=== PATIENT | male | born 1940 | race Caucasian/White ===

== ENCOUNTER 2016-08-28 11:35 | Emergency (ER) | payer MEDICARE, OTHER ==
[~2016-08-28] VITALS: Ht 170.2 cm; Wt 95.3 kg
[2016-08-28] MEDS ORDERED: IV NS 0.9% 1,000 ML ONE (11:43)
[2016-08-28] MEDS ORDERED: IV SET PRIMARY PUMP SET 1 EA INFUS.SET MC ONE (11:43)
[2016-08-28] MEDS ORDERED: ONDANSETRON HCL/PF 4 MG/2 ML VIAL ONE ×2 (11:43→13:56)
[2016-08-28 11:56] LABS: BASOPHILS # (AUTO) 0.3 /CMM (0.0-0.2); BASOPHILS % (AUTO) 2.7 % (0.0-2.0); DIFF TOTAL % 100 %; EOSINOPHILS # (AUTO) 0.6 /CMM (0.0-0.7); HEMATOCRIT 38 % (39-51); HEMOGLOBIN 12.5 g/dL (13.5-17.5); LYMPHOCYTES # (AUTO) 2.2 /CMM (0.8-4.8); LYMPHOCYTES % (AUTO) 22.2 % (20.0-44.0); MEAN CORPUSCULAR HEMOGLOBIN 29 PG (26.0-33.0); MEAN CORPUSCULAR HGB CONC 33 g/dl (31.0-36.0); MEAN CORPUSCULAR VOLUME 87 fL (80-96); MONOCYTES # (AUTO) 0.9 /CMM (0.1-1.30); MONOCYTES % (AUTO) 9.6 % (2.0-12.0); NEUTROPHILS # (AUTO) 5.9 /CMM (1.8-8.9); NEUTROPHILS % (AUTO) 59.5 % (43.0-81.0); PLATELET COUNT (AUTO) 234 /CMM (150-450); RED BLOOD CELL COUNT(AUTO) 4.34 MIL/uL (4.5-6.0); WHITE BLOOD COUNT (AUTO) 9.9 K/uL (4.3-11.0)
[2016-08-28] MEDS ORDERED: IV NS 0.9% 1,000 ML BAG IV ONE (12:00)
[2016-08-28] MEDS ORDERED: ONDANSETRON HCL/PF 4 MG/2 ML VIAL IV ONE ×2 (12:00→14:00)
[2016-08-28 12:07] LABS: CREATININE 1.3 mg/dL (0.6-1.3); POTASSIUM 4.1 mmol/L (3.5-5.1)
[2016-08-28 12:10] LABS: INR 0.99 (0.87-1.13); PROTHROMBIN TIME 10.4 SECS (9.5-12.7)
[2016-08-28 12:11] LABS: CALCIUM, SERUM 8.7 mg/dL (8.5-10.1)
[2016-08-28] MEDS ORDERED: PROMETHAZINE HCL 25 MG/ML AMPUL ONE (15:28)
[2016-08-28] MEDS ORDERED: PROMETHAZINE HCL 25 MG/ML AMPUL IV ONE (15:30)
[2016-08-28 16:53] VITALS: BP 151/79
== END 2016-08-28 16:54 | disposition home or self-care (01) ==
LOC: ER 11:38
DX: S52.501A Unspecified fracture of the lower end of right radius, initial encounter for closed fracture (principal); E86.0 Dehydration; I25.2 Old myocardial infarction; I10 Essential (primary) hypertension; Z95.810 Presence of automatic (implantable) cardiac defibrillator; W01.0XXA Fall on same level from slipping, tripping and stumbling without subsequent striking against object, initial encounter; Y93.9 Activity, unspecified; Y92.9 Unspecified place or not applicable; Y99.9 Unspecified external cause status
CPT/HCPCS: 29105; 36415; 73080; 73130; 80048; 85025; 85730; 96361; 96374; 96375; 96376; 99285; A4606; J2405 ×2; J2550; J7030; Z7610

== ENCOUNTER 2020-05-08 12:14 | Inpatient (IN) | payer MEDICARE, OTHER ==
[~2020-05-08] VITALS: Ht 172.7 cm; Wt 101.2 kg
--- NOTE | 2020-05-08 12:22 | NUR ---
YURIY FROM HOME, C/O WEAKNESS, NAUSEA AND VOMITING. TO ER BED 8, HOOKED TO MONITOR, CHANGED TO HOSP GOWN, WARM BLANKET PROVIDED, PATIENT AAO x 4, BREATHING EVEN AND UNLABORED, AWAITING MD BEATTY.
--- NOTE | 2020-05-08 12:24 | NUR ---
DR MAGDALENO AT BEDSIDE
[2020-05-08] MEDS ORDERED: IV NS 0.9% 500 ML BAG IV ONE (12:30)
--- NOTE | 2020-05-08 12:30 | NUR ---
JOHANA [phone]
[2020-05-08 12:44] LABS: BASOPHILS % (AUTO) 0.8 % (0.0-2.0); EOSINOPHILS % (AUTO) 1.8 % (0.0-6.0); HEMATOCRIT 44 % (39-51); HEMOGLOBIN 14.6 g/dL (13.5-17.5); LYMPHOCYTES # (AUTO) 1.1 /CMM (0.8-4.8); MEAN CORPUSCULAR HGB CONC 34 g/dl (31.0-36.0); MEAN CORPUSCULAR VOLUME 93 fL (80-96); MONOCYTES # (AUTO) 0.4 /CMM (0.1-1.30); MONOCYTES % (AUTO) 11.2 % (2.0-12.0); NEUTROPHILS # (AUTO) 2.2 /CMM (1.8-8.9); NEUTROPHILS % (AUTO) 57.2 % (43.0-81.0); PLATELET COUNT (AUTO) 156 /CMM (150-450); RED BLOOD CELL COUNT(AUTO) 4.68 MIL/uL (4.5-6.0); WHITE BLOOD COUNT (AUTO) 3.9 K/uL (4.3-11.0)
[2020-05-08 12:56] LABS: CALCIUM, SERUM 8.4 mg/dL (8.5-10.1); CARBON DIOXIDE 27 mmol/L (21-32); CHLORIDE 101 mmol/L (98-107); CREATININE 1.2 mg/dL (0.6-1.3); GLUCOSE 142 mg/dL (74-106); SODIUM SERUM 137 mmol/L (136-145); UREA NITROGEN, BLOOD 16 mg/dL (7-18)
[2020-05-08 13:01] LABS: ALANINE AMINOTRANSFERASE 13 U/L (12-78); ALBUMIN 3.2 g/dL (3.4-5.0); ALKALINE PHOSPHATASE 59 U/L (46-116); ASPARTATE AMINOTRANSFERASE 24 U/L (15-37); BILIRUBIN,DIRECT 0.1 mg/dL (0.0-0.2); BILIRUBIN,TOTAL 0.5 mg/dL (0.2-1.0); TOTAL PROTEIN, SERUM 7.4 g/dL (6.4-8.2)
[2020-05-08] MEDS ORDERED: CARV12.52 PO (13:46)
[2020-05-08] MEDS ORDERED: SPIR25TA6 PO (13:46)
[2020-05-08] MEDS ORDERED: PANT40TA49 PO (13:46)
[2020-05-08] MEDS ORDERED: VALS80TA31 PO (13:46)
[2020-05-08] MEDS ORDERED: CALC0.5C8 PO (13:46)
[2020-05-08] MEDS ORDERED: CYAN-6 SQ (13:46)
[2020-05-08] MEDS ORDERED: CLOP75TA15 PO (13:46)
[2020-05-08] MEDS ORDERED: LIDO700A30 TP (13:46)
[2020-05-08] MEDS ORDERED: TAMS-12 PO (13:46)
[2020-05-08] MEDS ORDERED: GABA-532 PO (13:46)
[2020-05-08] MEDS ORDERED: AZIT250T13 PO (13:46)
[2020-05-08] MEDS ORDERED: ROSU10TA29 PO (13:46)
[2020-05-08] MEDS ORDERED: URSO250T11 PO (13:47)
--- NOTE | 2020-05-08 14:36 | NUR ---
JONES VIRUS PCR DONE AND SENT TO LAB.
--- NOTE | 2020-05-08 15:35 | NUR ---
PATIENT IN BED ASLEEP, EASILY AROUSABLE BY VOICE, HOOKED TO DISTRICT TRAFFIC CHIEF, VSS. KEPT SAFE AND COMFORTABLE. WILL CONTINUE TO MONITOR
[2020-05-08] MEDS ORDERED: Z GUARD REMEDY 2 OZ OINT TP PRN (16:30)
[2020-05-08] MEDS ORDERED: ONDANSETRON HCL/PF 4 MG/2 ML VIAL IVP PRN (16:30)
[2020-05-08] MEDS ORDERED: MAG HYDROX/AL HYDROX/SIMETH 30 ML UDC PO PRN (16:30)
[2020-05-08] MEDS ORDERED: ACETAMINOPHEN 325 MG TABLET PO PRN (16:30)
[2020-05-08] MEDS ORDERED: MECLIZINE HCL 25 MG TABLET PO PRN (16:30)
[2020-05-08] MEDS ORDERED: TEMAZEPAM 15 MG CAPSULE PO PRN (16:30)
[2020-05-08] MEDS ORDERED: MORPHINE SULFATE INJ 2 MG/ML DISP.SYRIN IV PRN (16:30)
--- NOTE | 2020-05-08 16:42 | NUR ---
PATIENT REFUSED CTA BRAIN. JOVANY MARKS MADE AWARE
--- NOTE | 2020-05-08 17:11 | NUR ---
BACK FROM CT SCAN
--- NOTE | 2020-05-08 17:25 | NUR ---
REPORT GIVEN TO LEONIE LYONS OF TELE UNIT
[2020-05-08] MEDS ORDERED: GABAPENTIN 300 MG CAPSULE PO SCH (18:00)
--- NOTE | 2020-05-08 18:32 | NUR ---
transferred to tele unit via acls protocol.
--- NOTE | 2020-05-08 19:30 | NUR ---
DIRECTOR OF MARKETING AND PROMOTIONSOBSERVATION ASSISTANT NOTE PATIENT ARRIVED TO UNIT AT 1830 ON DAY SHIFT VIA GURNEY. PATIENT A/OX4. TOLERATING ROOM AIR. RESPIRATIONS ARE EVEN AND UNLABORED. NO S/S SOB NOTED. NO C/O PAIN AT THIS TIME. EXTERNAL TELE MONITOR READS PACING NONSENSING HR 100. PATIENT HAS A DEFIBRILLATOR / LEFT CHEST WALL PACEMAKER. IN NO APPARENT DISTRESS. IV ACCESS IN LEFT HAND #20 PATENT AND SALINE LOCKED. INITAL PHYSICAL ASSESSMENT COMPLETED AT THIS TIME. SKIN ASSESSMENT COMPLETED, PHOTOS TAKEN AND PLACED IN CHART. BELONING LIST COMPLETED, VITAL SIGNS TAKEN. BED IS LOW AND LOCKED, HOB ELEVATED IN SEMI FOWLERS, SIDE RAILS UP X2, JEFFY LIGHT WITHIN REACH. WILL CONTINUE TO MONITOR.
[2020-05-08 20:00] VITALS: BP 132/70
[2020-05-08] MEDS: ATORVASTATIN 10 MG TABLET PO SCH (21:18)
[2020-05-08] MEDS: GABAPENTIN 300 MG CAPSULE PO SCH (21:18)
[2020-05-08] MEDS: CARVEDILOL 12.5 MG TABLET PO SCH (21:20)
--- NOTE | 2020-05-08 23:40 | NUR ---
CHIEF LOCK OPERATOR NOTE - TRANSFER OF CARE TRANSFER OF CARE GIVEN TO ABRAHAM LYONS.
--- NOTE | 2020-05-08 23:40 | NUR ---
transfer of care notes: received report from nohemi connolly. pt a/o x3, on ra respirations even and unlabored. iv access patent and flushing well, on hl. tele monitoring v pacing hr 75. lcw pacemaker. pt stated he's afraid to get up due to dizziness, urinal provided to pt. safety precautions for fall initiated, call light in reach, will continue monitoring pt.
[2020-05-08] MEDS: IV NS 0.9% 1,000 ML IV PRN (23:41)
[2020-05-09] VITALS (8 sets, daily range): BP systolic 97–130; BP diastolic 56–73
--- NOTE | 2020-05-09 | NUR ---
RN NOTES: ORTHOSTATIC BP DONE, HOWEVER PT REFUSED STANDING, STATED HE CANT DO IT BECAUSE HE FEELS DIZZY, OFFERED MEDICATION ANTIVERT BUT PT REFUSED. ABLE TO CHECK BPO SUPINE AND SITTING ONLY. EDUCATION PROVIDED TO PT.
--- NOTE | 2020-05-09 01:43 | NUR ---
RN NOTES: NOTIFIED EPIC MD HOSPITALIST REGARDING VTE SCORE, PER MD TO FOLLOW UP WITH DAY HOSPITALIST IN AM.
--- NOTE | 2020-05-09 01:55 | NUR ---
RN NOTES: FOLLOW UP WITH MD AGAIN REGARDING CHEMICAL PROPHYLAXIS, PER MD PT ALREADY ON PLAVIX BLOOD THINNER, AND CAN FOLLOW UP WITH DAY HOSPITALIST IN AM IF STILL WANTS ANOTHER CHEMICAL PROPHYLAXIS.
--- NOTE | 2020-05-09 03:48 | NUR ---
RN NOTES: REPORT GIVEN TO ABRAHAM LYONS FOR CONTINUITY OF CARE.
--- NOTE | 2020-05-09 03:50 | NUR ---
RN Notes Patient asleep , no signs of distress and discomfort noted. IV access on right hand patent and intact with ongoing IVF infusing well. Will continue to monitor
--- NOTE | 2020-05-09 06:00 | NUR ---
RN Notes Patient refused for orthostatic BP, pt said he's dizzy when he moves can't stand up and sit to check BP.
--- NOTE | 2020-05-09 06:58 | NUR ---
RN Notes Patient sleep well overnight. Denies pain, sob and chest pain. Current diet tolerated well, denies nausea and vomiting. Verbalized dizziness especially when moving in bed. All needs met. Will endorse for continuity of care.
--- NOTE | 2020-05-09 07:34 | NUR ---
RIM FIRE PRIMING TOOL SETTER OPENING NOTES RECEIVED PATIENT IN BED, AWAKE, A/O X4. PATIENT BREATHING ON ROOM AIR; BREATHING EVEN AND UNLABORED, NO SOB PRESENT AT THIS TIME. NO COMPLAINS OF PAIN BUT COMPLAINING OF NAUSEA AND DIZZINESS. R HAND IV ACCESS PRESENT G # 20 RUNNING NS @ 75 MLS/HR. SAFETY PRECAUTIONS IN PLACE; BED IN LOW POSITION AND LOCKED, RAILS UP X2, CALL LIGHT WITHIN REACH. WILL CONTINUE TO MONITOR PATIENT.
[2020-05-09 08:22] LABS: BASOPHILS % (AUTO) 0.3 % (0.0-2.0); EOSINOPHILS % (AUTO) 2.6 % (0.0-6.0); HEMATOCRIT 44 % (39-51); HEMOGLOBIN 14.4 g/dL (13.5-17.5); LYMPHOCYTES % (AUTO) 24.2 % (20.0-44.0); MEAN CORPUSCULAR HGB CONC 33 g/dl (31.0-36.0); MEAN CORPUSCULAR VOLUME 93 fL (80-96); MONOCYTES # (AUTO) 0.5 /CMM (0.1-1.30); MONOCYTES % (AUTO) 11.9 % (2.0-12.0); NEUTROPHILS # (AUTO) 2.5 /CMM (1.8-8.9); PLATELET COUNT (AUTO) 146 /CMM (150-450); RED BLOOD CELL COUNT(AUTO) 4.71 MIL/uL (4.5-6.0); WHITE BLOOD COUNT (AUTO) 4.1 K/uL (4.3-11.0)
[2020-05-09] MEDS: CLOPIDOGREL BISULFATE 75 MG TABLET PO SCH (08:30)
[2020-05-09] MEDS: LIDOCAINE 5% (PATCH) 1 EA PATCH TP SCH (08:31)
[2020-05-09] MEDS: CALCITRIOL 0.25 MCG CAPSULE PO SCH (08:31)
[2020-05-09] MEDS: CARVEDILOL 12.5 MG TABLET PO SCH ×2 (08:31→20:27)
[2020-05-09] MEDS: SPIRONOLACTONE 25 MG TABLET PO SCH (08:31)
[2020-05-09] MEDS: PANTOPRAZOLE 40 MG TABLET.DR PO SCH (08:31)
[2020-05-09] MEDS: TAMSULOSIN 0.4 MG CAP.SR.24H PO SCH (08:31)
[2020-05-09] MEDS ORDERED: PANTOPRAZOLE 40 MG TABLET.DR PO SCH (09:00)
[2020-05-09 09:22] LABS: CALCIUM, SERUM 8.2 mg/dL (8.5-10.1); CREATININE 1.1 mg/dL (0.6-1.3); MAGNESIUM 2.4 mg/dL (1.8-2.4); PHOSPHORUS 2.8 mg/dL (2.5-4.9); POTASSIUM 4.1 mmol/L (3.5-5.1)
[2020-05-09 09:25] LABS: THYROID STIMULATING HORMONE 1.891 uIU/mL (0.358-3.74)
--- NOTE | 2020-05-09 11:24 | NUR ---
WOUND CARE CONSULT: PT EXAMINED BY Yoan MARKS DNP AND NOTED TO HAVE LEFT INGUINAL WOUND WITH PURULENT DRAINAGE. RECOMMEND SURGICAL CONSULT. DR RAFFAELE COSBY NOTIFIED OF CONSULT REQUEST. RECOMMENDATIONS MADE FOR SKIN PROTECTION. DISCUSSED WITH NURSING STAFF. WILL SEE PRN. VÁZQUEZ IN AGREEMENT WITH PLAN OF CARE.
[2020-05-09] MEDS: GABAPENTIN 300 MG CAPSULE PO SCH (17:58)
[2020-05-09] MEDS: ATORVASTATIN 10 MG TABLET PO SCH (17:58)
[2020-05-09] MEDS: HYDROCODONE/APAP 5/325MG TABLET PO PRN (18:04)
--- NOTE | 2020-05-09 18:43 | NUR ---
ENVIRONMENTAL COMPLIANCE SPECIALIST CLOSING NOTES PATIENT IN BED, AWAKE, A/O X4. PATIENT BREATHING ON ROOM AIR; BREATHING EVEN AND UNLABORED, NO SOB PRESENT DURING THE SHIFT. COMPLAIN OF HEADACHE TREATED WITH PRN PAIN MEDICATION PER MD ORDER. R HAND IV ACCESS PRESENT G # 20 RUNNING NS @ 75 MLS/HR. ALL NEEDS ATTENDED TO THROUGHOUT THE DAY. SAFETY PRECAUTIONS IN PLACE; BED IN LOW POSITION AND LOCKED, RAILS UP X2, CALL LIGHT WITHIN REACH. WILL ENDORSE TO METEOROLOGICAL TECHNICIAN NURSE.
--- NOTE | 2020-05-09 20:00 | NUR ---
ROBOTICS SYSTEMS ENGINEER OPENING NOTE: Patient in bed awake, alert, oriented x4. Patient able to make needs known. Patient on cardiac monitoring. Patient breathing well on room air, no acute distress or SOB noted. Noted IV access on right hand 20 gauge, dressing dry and intact, IV patent, no redness, or infiltration. Safety precaution is in place, bed is in the lowest level, brakes are on, side rails x2 are up, and call light is within reach. Will continue to monitor.
[2020-05-10] VITALS: BP 111/54
[2020-05-10] MEDS: IV NS 0.9% 1,000 ML IV PRN ×2 (02:53→21:51)
[2020-05-10 04:00] VITALS: BP_SYST 105; BP_SYST 97; BP_DIAS 49; BP_DIAS 51
[2020-05-10 07:10] LABS: CALCIUM, SERUM 8.6 mg/dL (8.5-10.1); CREATININE 1.2 mg/dL (0.6-1.3); POTASSIUM 3.8 mmol/L (3.5-5.1)
--- NOTE | 2020-05-10 07:21 | NUR ---
ROUNDING AND BACKING MACHINE OPERATOR CLOSING NOTE: Patient in bed awake and alert. Patient is breathing well, even and unlabored on room air. NO SOB or respiratory distress. Safety precaution is in place, bed is in the lowest level, bed is locked, side rails x2 are up, and call light is within reach. Will endorse to next shift.
--- NOTE | 2020-05-10 07:30 | NUR ---
RN OPENING NOTE: Received patient in bed. Awake, alert and oriented x4. Able to make needs known. Isolation precaution observed for COVID-19, No SOB and not in respiratory distress, saturation noted at 96%. Informed patient that oxygen is available at bedside. IV site clean, dry, patent and intact. No pain noted nor reported. Call light in reach. Bed locked, low and at semi-moses's position. Side rails up x3. Safety ensured and observed. Nausea reported and vomiting observed, will manage with available medications. Will continue to monitor.
[2020-05-10 08:00] VITALS: BP_SYST 112; BP_SYST 119; BP_SYST 123; BP_DIAS 60; BP_DIAS 63; BP_DIAS 71
[2020-05-10] MEDS: LIDOCAINE 5% (PATCH) 1 EA PATCH TP SCH (10:39)
[2020-05-10] MEDS: TAMSULOSIN 0.4 MG CAP.SR.24H PO SCH (10:40)
[2020-05-10] MEDS: CALCITRIOL 0.25 MCG CAPSULE PO SCH (10:40)
[2020-05-10] MEDS: SPIRONOLACTONE 25 MG TABLET PO SCH (10:40)
[2020-05-10] MEDS: CARVEDILOL 12.5 MG TABLET PO SCH ×2 (10:40→21:20)
[2020-05-10] MEDS: PANTOPRAZOLE 40 MG TABLET.DR PO SCH (10:41)
[2020-05-10] MEDS: CLOPIDOGREL BISULFATE 75 MG TABLET PO SCH (10:41)
[2020-05-10 12:00] VITALS: BP 124/91
[2020-05-10 16:00] VITALS: BP 129/95
[2020-05-10] MEDS: HYDROCODONE/APAP 5/325MG TABLET PO PRN (17:17)
[2020-05-10] MEDS: GABAPENTIN 300 MG CAPSULE PO SCH (17:17)
[2020-05-10] MEDS: ATORVASTATIN 10 MG TABLET PO SCH (17:17)
--- NOTE | 2020-05-10 19:22 | NUR ---
RN CLOSING NOTE: Patient remains in bed. Awake, alert and oriented x4. Able to make needs known. Isolation precaution observed for COVID-19, No SOB and not in respiratory distress, saturation noted at 96%. Oxygen available at bedside. IV site clean, dry, patent and intact. No pain noted nor reported. Call light in reach. Bed locked, low and at semi-moses's position. Side rails up x3. Safety ensured and observed. Due medications given. Treatment given as ordered. Endorsed to oncoming shift for KHUSHI.
--- NOTE | 2020-05-10 19:45 | NUR ---
EMBEDDED SYSTEMS DEVELOPER NOTES RECEIVED ON BED A/O X4,BREATHING REGULAR,NOT IN ANY FORM OF DISTRESS.WITH IVF NS AT 75ML/HR RATE,SITE PATENT ON RIGHT HAND.DENIES PAIN AT THE MOMENT.AMBULATE WITH ASSIST,ISOLATION PRECAUTION FOR COVID POSITIVE.CALL LIGHT IN REACH,NEEDS ANTICIPATED.
[2020-05-10 20:00] VITALS: BP 104/59
--- NOTE | 2020-05-10 21:20 | NUR ---
MS RN NOTES BP RECHECK 110/60,DUE COREG 12.5MG PO GIVEN,ALONG WITH TYLENOL 650MG PO FOR ORAL TEMP OF 99.9.
[2020-05-11] VITALS: BP 110/63
[2020-05-11 00:04] VITALS: BP 110/63
[2020-05-11 04:00] VITALS: BP 110/58
--- NOTE | 2020-05-11 06:40 | NUR ---
BUSINESS REPORTER NOTES SLEPT WELL AT NIGHT.IVF INFUSING,LATEST ORAL TEMP 99.3.ENCOURAGE TO INCREASED ORAL FLUIDS.PLAN MESH EXPLANTATION AFTER COVID TREATMENT AND FULL RECOVERY.IN NO ACUTE DISTRESS.WILL ENDORSE TO ARETHA LYONS FOR KHUSHI
--- NOTE | 2020-05-11 07:30 | NUR ---
RN Opening Note Received patient in bed, AO x 3-4, able to responds all stimuli. Noticed dry cough occasionally, respiratory even and unlabored on oxygen. Skin is warm to touch, keep clean.dry, intact IV site, no fever. Kept bed in lock with elevated HOB, for ensure airway and aspiration precaution, and remain lower position of bed fed safety. Will continue to monitor.
[2020-05-11] MEDS: PANTOPRAZOLE 40 MG TABLET.DR PO SCH (07:40)
[2020-05-11 08:31] LABS: BASOPHILS % (AUTO) 0.3 % (0.0-2.0); EOSINOPHILS % (AUTO) 1.6 % (0.0-6.0); HEMATOCRIT 41 % (39-51); HEMOGLOBIN 13.6 g/dL (13.5-17.5); LYMPHOCYTES # (AUTO) 0.8 /CMM (0.8-4.8); LYMPHOCYTES % (AUTO) 21.6 % (20.0-44.0); MEAN CORPUSCULAR HGB CONC 33 g/dl (31.0-36.0); MEAN CORPUSCULAR VOLUME 92 fL (80-96); MONOCYTES # (AUTO) 0.5 /CMM (0.1-1.30); MONOCYTES % (AUTO) 14.6 % (2.0-12.0); NEUTROPHILS # (AUTO) 2.2 /CMM (1.8-8.9); NEUTROPHILS % (AUTO) 61.9 % (43.0-81.0); PLATELET COUNT (AUTO) 124 /CMM (150-450); RED BLOOD CELL COUNT(AUTO) 4.44 MIL/uL (4.5-6.0); WHITE BLOOD COUNT (AUTO) 3.6 K/uL (4.3-11.0)
[2020-05-11 08:40] LABS: CALCIUM, SERUM 8.7 mg/dL (8.5-10.1); CREATININE 1.2 mg/dL (0.6-1.3); POTASSIUM 3.9 mmol/L (3.5-5.1)
[2020-05-11] MEDS: CARVEDILOL 12.5 MG TABLET PO SCH ×2 (09:00→22:18)
[2020-05-11] MEDS: SPIRONOLACTONE 25 MG TABLET PO SCH (09:00)
[2020-05-11] MEDS: LIDOCAINE 5% (PATCH) 1 EA PATCH TP SCH (09:29)
[2020-05-11] MEDS: TAMSULOSIN 0.4 MG CAP.SR.24H PO SCH (09:29)
[2020-05-11] MEDS: CLOPIDOGREL BISULFATE 75 MG TABLET PO SCH (09:29)
[2020-05-11] MEDS: CALCITRIOL 0.25 MCG CAPSULE PO SCH (09:30)
[2020-05-11] MEDS: IV NS 0.9% 1,000 ML IV PRN (14:55)
[2020-05-11] MEDS: GABAPENTIN 300 MG CAPSULE PO SCH (18:03)
[2020-05-11] MEDS: ATORVASTATIN 10 MG TABLET PO SCH (18:03)
--- NOTE | 2020-05-11 18:40 | NUR ---
RN Closing Note Patient in bed resting, does no c/o pain or distress, no fever observed. Skin is warm to touch, keep clean/dry, dressing changed on left groin. No distress of respiratory, O2sat 98% on room air. keep bed in locked with elevated HOB for ensure airway and aspiration precaution. Call light within reach, will endorsed night worker.
--- NOTE | 2020-05-11 19:25 | NUR ---
THREAD MILLING MACHINE SET UP OPERATOR OPEN NOTES PATIENT IS LAYING IN BED. A/O X4. ON RA, NO SOB/ ACUTE RESPIRATORY DISTRESS NOTED. NO COMPLAINTS OF PAIN AT THE MOMENT. BED IS IN LOWEST LOCKED POSITION WITH SIDE RAILS UP X3, SEMI FOWLERS. CALL LIGHT IS WITHIN REACH. WILL CONTINUE TO MONITOR.
--- NOTE | 2020-05-11 21:00 | NUR ---
SENIOR COLDFUSION DEVELOPER NOTES PATIENT REFUSED TO SIGN ANY CONSENT REGARDING CT NEEDLE BIOPSY WITHOUT SPEAKING TO DOCTOR FIRST. STATED HE WANTS THE DOCTOR TO GO OVER EVERYTHING WITH HIM BEFORE HE SIGNS ANYTHING.
--- NOTE | 2020-05-11 21:30 | NUR ---
CRUSHER SETTER NOTES ATTEMPTED TO INSERT NEW IV'S, WAS UNSUCCESSFUL. PT STATED HE WANTED TO WAIT UNTIL THE MORNING TO HAVE A NEW IV INSERTED.
--- NOTE | 2020-05-12 06:47 | NUR ---
HEALTH INFORMATION TECH CLOSE NOTES PATIENT IS LAYING IN BED. A/O X4. ON RA, NO SOB/ ACUTE RESPIRATORY DISTRESS NOTED. TELE MONITOR READING V PACING, 82. APPEARS COMFORTABLE/ NO COMPLAINTS OF PAIN AT THE MOMENT. PT KEPT NPO THROUGH THE NIGHT. BED IS IN LOWEST LOCKED POSITION WITH SIDE RAILS UP X3, SEMI FOWLERS. CALL LIGHT IS WITHIN REACH. WILL ENDORSE TO AM NURSE.
[2020-05-12 07:27] VITALS: BP 129/64
[2020-05-12] MEDS: PANTOPRAZOLE 40 MG TABLET.DR PO SCH (07:30)
[2020-05-12 08:00] VITALS: BP 118/70
--- NOTE | 2020-05-12 08:55 | NUR ---
RN NOTE US PELVIS COMPLETE PER HOT DIE PRESS OPERATOR KENDRICK RADIOLOGIST REQUESTED. THE ORDER NOTED AND CARRIED OUT.
[2020-05-12] MEDS: CARVEDILOL 12.5 MG TABLET PO SCH ×2 (09:00→20:50)
[2020-05-12] MEDS: TAMSULOSIN 0.4 MG CAP.SR.24H PO SCH (09:00)
[2020-05-12] MEDS: CLOPIDOGREL BISULFATE 75 MG TABLET PO SCH (09:00)
[2020-05-12] MEDS: SPIRONOLACTONE 25 MG TABLET PO SCH (09:00)
[2020-05-12] MEDS: CALCITRIOL 0.25 MCG CAPSULE PO SCH (09:00)
[2020-05-12] MEDS: LIDOCAINE 5% (PATCH) 1 EA PATCH TP SCH (11:24)
--- NOTE | 2020-05-12 15:54 | NUR ---
RN NOTE CARDIAC DIET PER JOVANY MARKS. NOTED AND CARRIED OUT.
[2020-05-12] MEDS: GABAPENTIN 300 MG CAPSULE PO SCH (19:00)
[2020-05-12] MEDS: ATORVASTATIN 10 MG TABLET PO SCH (19:00)
--- NOTE | 2020-05-12 19:00 | NUR ---
RN NOTE THE PATIENT IS ALERT AND ORIENTED X4. DENIES PAIN. IN ROOM AIR AND SATURATION IN ROOM AIR IS AT 94%. DENIES SOB. RESPIRATION REGULAR AND UNLABORED. THE PATIENT IN NO APPARENT DISTRESS. NO IV ACCESS THE TRUCK UNLOADER KENDRICK IS AWARE. BED LOW AND LOCKED. SIDE RAILS UP X3. CALL LIGHT WITHIN REACH. WILL ENDORSE TO FIELD RESEARCH ASSISTANT.
--- NOTE | 2020-05-12 19:25 | NUR ---
STROKE PROGRAM COORDINATOR: RECEIVED PATIENT Patient in bed, awake, A/O x3. No IV line, per report unsuccessful IV insertion so as patient refused to have another attempt IV insertion again. AV Pacing in the Tele monitor. Patient is independent with ADL's. Maintained safety.
[2020-05-12 20:00] VITALS: BP 110/49
--- NOTE | 2020-05-12 20:50 | NUR ---
REFUSED DUE MED COREG Patient refused Coreg, BP 110/49 Pulse 75. No parameters to hold BP. Education provided, patient verbalized understanding.
[2020-05-13] VITALS: BP 114/61
[2020-05-13 04:00] VITALS: BP 115/60
--- NOTE | 2020-05-13 06:48 | NUR ---
ELECTROLYSIS INVESTIGATOR: END OF SHIFT REPORT Patient in bed, adequate sleep this shift. Sinus rhythm in the Tele monitor, HR 75. Feeling better, want s to go today. No other complaints. No acute events overnight. Still refused IV re insertion and IVF despite education. Encouraged fluid intake. Contact, Droplet precaution with N95 and Eye shield protection. Will endorse to oncoming RN.
--- NOTE | 2020-05-13 07:10 | NUR ---
RN OPENING NOTES PATIENT IN BED RESTING. NOT IN ANY FORM OF DISTRESS. DENIED PAIN OR DISCOMFORT. KEPT PATIENT SAFE AND COMFORTABLE. MAINTAINED ISOLATION PRECAUTIONS FOR COVID. BED IN LOW/LOCKED POSITION, SIDERAILS UPX2, CALL LIGHT IN REACH. WILL CONT TO MONITOR ACCORDINGLY.
[2020-05-13 07:21] LABS: BASOPHILS % (AUTO) 0.6 % (0.0-2.0); EOSINOPHILS % (AUTO) 1.2 % (0.0-6.0); HEMATOCRIT 43 % (39-51); HEMOGLOBIN 14.4 g/dL (13.5-17.5); LYMPHOCYTES % (AUTO) 26.7 % (20.0-44.0); MEAN CORPUSCULAR HGB CONC 34 g/dl (31.0-36.0); MEAN CORPUSCULAR VOLUME 93 fL (80-96); MONOCYTES # (AUTO) 0.4 /CMM (0.1-1.30); MONOCYTES % (AUTO) 10.8 % (2.0-12.0); NEUTROPHILS # (AUTO) 2.2 /CMM (1.8-8.9); NEUTROPHILS % (AUTO) 60.7 % (43.0-81.0); PLATELET COUNT (AUTO) 124 /CMM (150-450); RED BLOOD CELL COUNT(AUTO) 4.63 MIL/uL (4.5-6.0); WHITE BLOOD COUNT (AUTO) 3.7 K/uL (4.3-11.0)
[2020-05-13 07:49] LABS: CREATININE 1.2 mg/dL (0.6-1.3); POTASSIUM 4.2 mmol/L (3.5-5.1)
[2020-05-13] MEDS: PANTOPRAZOLE 40 MG TABLET.DR PO SCH (08:35)
[2020-05-13] MEDS: CLOPIDOGREL BISULFATE 75 MG TABLET PO SCH (08:36)
[2020-05-13] MEDS: CARVEDILOL 12.5 MG TABLET PO SCH ×2 (08:38→21:00)
[2020-05-13] MEDS: TAMSULOSIN 0.4 MG CAP.SR.24H PO SCH (08:45)
[2020-05-13] MEDS: LIDOCAINE 5% (PATCH) 1 EA PATCH TP SCH (08:45)
[2020-05-13] MEDS: CALCITRIOL 0.25 MCG CAPSULE PO SCH (08:46)
[2020-05-13] MEDS: SPIRONOLACTONE 25 MG TABLET PO SCH (08:46)
[2020-05-13 09:00] VITALS: BP 100/50
--- NOTE | 2020-05-13 14:00 | NUR ---
IV ACCESS IV ACCESS REINSERTED ON L FOREARM G 20. INTACT AND PATENT AND FLUSHING WELL.
[2020-05-13] MEDS: VANCOMYCIN 1.25 GM in IV D5W 250 ML IV SCH (14:57)
--- NOTE | 2020-05-13 15:15 | NUR ---
ENDORSED ACCORDINGLY TO ELOY HOU. PATIENT IN STABLE CONDITION.
[2020-05-13 16:00] VITALS: BP 100/57
[2020-05-13] MEDS: GABAPENTIN 300 MG CAPSULE PO SCH (17:52)
[2020-05-13] MEDS: ATORVASTATIN 10 MG TABLET PO SCH (17:52)
--- NOTE | 2020-05-13 18:59 | NUR ---
RN CLOSING NOTES PATIENT IN BED RESTING. NOT IN ANY FORM OF DISTRESS. DENIED PAIN OR DISCOMFORT. KEPT PATIENT SAFE AND COMFORTABLE. IV ACCES NOTED ON R FOREARM G20. INTACT AND PATENT AND FLUSHING WELL. MAINTAINED ISOLATION PRECAUTIONS FOR COVID. BED IN LOW/LOCKED POSITION, SIDERAILS UPX2, CALL LIGHT IN REACH. WILL CONT TO MONITOR ACCORDINGLY.
--- NOTE | 2020-05-13 19:10 | NUR ---
MS/RN OPENING NOTES: RECEIVED PATIENT IN BED RESTING. NO S/S OF DISTRESS. NO C/O PAIN OR DISCOMFORT. VERBALLY RESPONSIVE AND ABLE TO MAKE NEEDS KNOWN. IV ACCES NOTED ON R FOREARM #20G WITH NS @ 75MLS/HR. INTACT AND PATENT AND FLUSHING WELL. COVID [address] SAFETY MEASURES IN PLACE. BED IN LOW/LOCKED POSITION, SIDE RAILS UPX2, CALL LIGHT IN REACH. WILL CONT TO MONITOR ACCORDINGLY.
[2020-05-13 20:00] VITALS: BP_SYST 118; BP_SYST 153; BP_DIAS 55; BP_DIAS 84
[2020-05-14] MEDS: IV NS 0.9% 1,000 ML IV PRN (03:26)
[2020-05-14] MEDS: VANCOMYCIN 1.25 GM in IV D5W 250 ML IV SCH (05:06)
--- NOTE | 2020-05-14 06:19 | NUR ---
MS/RN CLOSING NOTES: PATIENT IN BED SLEEPING. NO S/S OF DISTRESS. NO C/O PAIN OR DISCOMFORT. NO SIGNIFICANT CHANGES IN CONDITION. IV ACCES NOTED ON R FOREARM #20G WITH NS @ 75MLS/HR. INTACT AND PATENT AND FLUSHING WELL. COVID [address] KEPT IN PL[address] SAFETY MEASURES IN PLACE. BED IN LOW/LOCKED POSITION, SIDE RAILS UPX2, CALL LIGHT IN REACH. ALL DUE MEDS GIVEN ORDERED. ALL NURSING NEEDS MET AND RENDERED. WILL ENDORSE TO DAY SHIFT FOR KHUSHI.
--- NOTE | 2020-05-14 07:30 | NUR ---
MS/RN OPENING NOTE Patient resting in bed, A&O x 4. Denies any pain and discomfort at this time. Breathing even and non-labored on RA, no SOB noted. No cardiac distress noted. IV access noted on R FA #20 g, patent and intact, and running 75 mls/hr. Sensation from all peripheral extremities intact. Bed locked to its lowest position, side rails x 2 up, call light in hand. Instructed patient to use call light when in need of assistance. Will continue with current medical management. Addendum: 05/14/20 at 0810 by JAMILA DESHPANDE RN CORRECTION: IV ACCESS NOTED ON L AC #20 G
[2020-05-14 07:45] LABS: CALCIUM, SERUM 8.2 mg/dL (8.5-10.1); CREATININE 1.1 mg/dL (0.6-1.3); POTASSIUM 3.9 mmol/L (3.5-5.1)
[2020-05-14 08:00] VITALS: BP 124/57
[2020-05-14] MEDS: TAMSULOSIN 0.4 MG CAP.SR.24H PO SCH (08:18)
[2020-05-14] MEDS: PANTOPRAZOLE 40 MG TABLET.DR PO SCH (08:18)
[2020-05-14] MEDS: CALCITRIOL 0.25 MCG CAPSULE PO SCH (08:19)
[2020-05-14] MEDS: SPIRONOLACTONE 25 MG TABLET PO SCH (08:19)
[2020-05-14] MEDS: CLOPIDOGREL BISULFATE 75 MG TABLET PO SCH (08:19)
[2020-05-14] MEDS: LIDOCAINE 5% (PATCH) 1 EA PATCH TP SCH (08:21)
[2020-05-14] MEDS: CARVEDILOL 12.5 MG TABLET PO SCH (08:21)
--- NOTE | 2020-05-14 10:45 | NUR ---
MS/RN NOTE Dr. Alvarez at bedside, explained discharge plan with patient.
--- NOTE | 2020-05-14 11:00 | NUR ---
MS/RN NOTE Collected covid-test swab and sent to lab. Awaiting for results.
[2020-05-14 12:00] VITALS: BP 112/40
--- NOTE | 2020-05-14 13:00 | NUR ---
MS/RN NOTE Lab reported patient is covid negative.
--- NOTE | 2020-05-14 14:10 | NUR ---
MS/RETANNER NOTE Patient picked up by ambulance at 1400. Remained stable, VSS, afebrile, no SOB noted. No complaints of pain/discomfort upon discharge. Breathing even and non-labored on RA. No respiratory or cardiac distress noted. IV access on L AC #[address] since patient will continue receiving IV abx at [facility]), patent and intact, and flushing well. No s/s of infiltration, bleeding, or infection noted on site. Skin assessment done, took picture of L groin wound and placed on chart. Cleansed with NS and placed clean dry dressing on site. Sensation from all peripheral extremities intact. Educated patient regarding discharge instructions and answered all questions to his satisfaction, patient verbalized understanding. Endorsed plan of care to ELOY Palma of [facility] Patient left facility safely with all hospital documents and belongings in hand.
[2020-06-21] MEDS ORDERED: CYANOCOBALAMIN 1,000 MCG/ML VIAL SQ SCH (09:00)
== END 2020-05-14 14:00 | DRG 919 ==
LOC: ER 12:22 → TELE2 17:22 → MEDSG2 05-13 10:07
PROVIDERS: ADMIT Nurse Practitioner Acute Care; ATTEND Internal Medicine
DX: T85.79XA Infection and inflammatory reaction due to other internal prosthetic devices, implants and grafts, initial encounter (principal); U07.1 COVID-19; N17.0 Acute kidney failure with tubular necrosis; J12.89 Other viral pneumonia; E44.1 Mild protein-calorie malnutrition; I50.32 Chronic diastolic (congestive) heart failure; I11.0 Hypertensive heart disease with heart failure; E66.9 Obesity, unspecified; G62.9 Polyneuropathy, unspecified; I25.10 Atherosclerotic heart disease of native coronary artery without angina pectoris; K21.9 Gastro-esophageal reflux disease without esophagitis; N40.0 Benign prostatic hyperplasia without lower urinary tract symptoms; Z86.14 Personal history of Methicillin resistant Staphylococcus aureus infection; Z95.0 Presence of cardiac pacemaker; Z95.5 Presence of coronary angioplasty implant and graft; E88.09 Other disorders of plasma-protein metabolism, not elsewhere classified; Z68.33 Body mass index [BMI] 33.0-33.9, adult; R42 Dizziness and giddiness; R53.1 Weakness; G47.33 Obstructive sleep apnea (adult) (pediatric); Y83.8 Other surgical procedures as the cause of abnormal reaction of the patient, or of later complication, without mention of misadventure at the time of the procedure; Y92.009 Unspecified place in unspecified non-institutional (private) residence as the place of occurrence of the external cause; K80.20 Calculus of gallbladder without cholecystitis without obstruction; I25.2 Old myocardial infarction; Z87.891 Personal history of nicotine dependence; E53.8 Deficiency of other specified B group vitamins
CPT/HCPCS: 36415; 70450-TC; 71045-TC; 76882; 80048-TC; 80061-TC; 80076-TC; 82728-TC; 83615-TC; 83735-TC; 83880; 84100-TC; 84443-TC; 84484-TC; 85025-TC; 85610-TC; 85652-TC; 86140-TC; 87040-TC; 87070-TC; 87081-TC; 93308-TC; 97110-TC; 97116-TC; 97530-TC; A6253; G0378; J2270; J2405; J3370; J7030; J7040; J7060; J7070; U0003-CS